=== PATIENT | male | born 1970 | race Caucasian/White ===

== ENCOUNTER 2016-07-29 16:28 | Inpatient (IN) | payer MEDICARE ==
[2016-07-29] MEDS ORDERED: XANAX0.5 M1 PO (16:37)
[2016-07-29] MEDS ORDERED: PROTONIX40 M2 PO (16:37)
[2016-07-29 17:20] LABS: HCT-HEMATOCRIT 31.1 % (36.0-53.5); MCH (MEAN CORPUSCULAR HGB) 32.1 pg (28.0-32.0); MCHC MEAN CORPUSCULAR HGB CONC 32.2 % (32.0-36.0); MCV (MEAN CELL VOLUME) 99.7 fl (82.0-96.0); MEAN PLATELET VOLUME 7.9 cmc (9.4-12.4); PLATELET COUNT 119 tho/cmm (150-450); RED BLOOD COUNT 3.12 mil/cmm (4.40-5.70); RED CELL DISTRIBUTION WIDTH 17.4 % (12.4-16.4)
[2016-07-29 17:22] LABS: WHITE BLOOD COUNT 204.7 tho/cmm (4.0-10.0)
[2016-07-29 17:34] LABS: ALB/GLOB RATIO 1.1 (0.8-2.0); ALBUMIN 3.9 g/dl (3.5-5.0); ALKALINE PHOSPHATASE 67 U/L (33-138); ALT/SGPT 32 U/L (12-78); ANION GAP 12 mmol/L (0-20); AST/SGOT 30 U/L (10-40); BILIRUBIN,TOTAL 0.4 mg/dl (0.0-1.5); BLOOD UREA NITROGEN 29 mg/dl (6-24); CARBON DIOXIDE-VENOUS 28 mmol/L (22-32); CHLORIDE 103 mmol/l (96-110); CREATININE 0.91 mg/dl (0.60-1.30); GLUCOSE 94 mg/dL (70-110); POTASSIUM 4.3 mmol/L (3.7-5.1); SODIUM 139 mmol/L (135-145); eGFR VALUE FOR BLACK >90 mL/Min
[2016-07-29 18:09] LABS: BAND % 32 % (0-20); BAND ABSOLUTE COUNT 65.5 tho/cmm (0-2.0); EOSINOPHIL % 1 % (0-7)
[2016-07-29 18:21] LABS: PROCALCITONIN 0.07 ng/ml (0.05-0.09)
[2016-07-29 18:41] LABS: URINE BILIRUBIN NEGATIVE (NEG); URINE BLOOD NEGATIVE (NEG); URINE GLUCOSE (UA) NEGATIVE (NEG); URINE KETONE NEGATIVE (NEG); URINE LEUKOCYTE ESTERASE NEGATIVE (NEG); URINE NITRITE NEGATIVE (NEG); URINE PROTEIN NEGATIVE (NEG)
[2016-07-29 18:43] LABS: URINE APPEARANCE CLEAR; URINE COLOR YELLOW
[2016-07-29 21:43] LABS: PROTHROMBIN TIME 11.3 SECONDS (9.0-13.6)
[2016-07-29 21:57] LABS: AMYLASE 60 U/L (20-90); C-REACTIVE PROTEIN 0.3 mg/dl (0-0.9); LIPASE 112 U/L (73-393); MAGNESIUM 2.1 mg/dl (1.8-2.6); PHOSPHOROUS 5.3 mg/dl (2.5-4.9)
[2016-07-29 22:01] LABS: TSH-THYROID STIMULATING HORM. 3.96 uIU/ml (0.40-3.80)
[2016-07-30 03:38] LABS: HCT-HEMATOCRIT 30.7 % (36.0-53.5); HGB-HEMOGLOBIN 9.9 gm/dl (13.5-17.0); MCHC MEAN CORPUSCULAR HGB CONC 32.2 % (32.0-36.0); MCV (MEAN CELL VOLUME) 99.4 fl (82.0-96.0); PLATELET COUNT 107 tho/cmm (150-450); RED BLOOD COUNT 3.09 mil/cmm (4.40-5.70); RED CELL DISTRIBUTION WIDTH 17.4 % (12.4-16.4)
[2016-07-30 03:48] LABS: ANION GAP 13 mmol/L (0-20); BLOOD UREA NITROGEN 27 mg/dl (6-24); CALCIUM 8.6 mg/dl (8.5-10.5); CARBON DIOXIDE-VENOUS 27 mmol/L (22-32); CHLORIDE 104 mmol/l (96-110); CREATININE 0.94 mg/dl (0.60-1.30); GLUCOSE 95 mg/dL (70-110); POTASSIUM 3.8 mmol/L (3.7-5.1); SODIUM 140 mmol/L (135-145); eGFR VALUE FOR BLACK >90 mL/Min
[2016-07-30 03:51] LABS: WHITE BLOOD COUNT 189.9 tho/cmm (4.0-10.0)
[2016-07-30 07:56] LABS: BAND % 13 % (0-20); BAND ABSOLUTE COUNT 24.7 tho/cmm (0-2.0); BASOPHIL % 3 % (0-2); BASOPHIL ABSOLUTE COUNT 5.7 tho/cmm (0.0-0.2); EOSINOPHIL % 2 % (0-7)
[2016-07-30 07:59] LABS: WBC MORPHOLOGY DOHLE BODIES
[2016-07-30 11:41] LABS: BLAST % 3 % (0); BLAST ABSOLUTE COUNT 5.7 tho/cmm (0)
[2016-07-30 11:41] LABS: BLAST % 3 % (0); BLAST ABSOLUTE COUNT 6.1 tho/cmm (0)
[2016-07-31 13:31] LABS: ALB/GLOB RATIO 1.2 (0.8-2.0); ALBUMIN 4.1 g/dl (3.5-5.0); ALKALINE PHOSPHATASE 74 U/L (33-138); ALT/SGPT 33 U/L (12-78); ANION GAP 12 mmol/L (0-20); AST/SGOT 26 U/L (10-40); BILIRUBIN,TOTAL 0.3 mg/dl (0.0-1.5); BLOOD UREA NITROGEN 26 mg/dl (6-24); CALCIUM 8.9 mg/dl (8.5-10.5); CARBON DIOXIDE-VENOUS 29 mmol/L (22-32); CHLORIDE 104 mmol/l (96-110); CREATININE 1.03 mg/dl (0.60-1.30); GLUCOSE 106 mg/dL (70-110); SODIUM 141 mmol/L (135-145); eGFR VALUE FOR BLACK >90 mL/Min
[2016-07-31 14:16] LABS: HCT-HEMATOCRIT 32.2 % (36.0-53.5); HGB-HEMOGLOBIN 10.3 gm/dl (13.5-17.0); MCH (MEAN CORPUSCULAR HGB) 31.9 pg (28.0-32.0); MCV (MEAN CELL VOLUME) 99.7 fl (82.0-96.0); MEAN PLATELET VOLUME 8.3 cmc (9.4-12.4); PLATELET COUNT 129 tho/cmm (150-450); RED BLOOD COUNT 3.23 mil/cmm (4.40-5.70); RED CELL DISTRIBUTION WIDTH 17.3 % (12.4-16.4)
[2016-07-31 14:28] LABS: WHITE BLOOD COUNT 185.6 tho/cmm (4.0-10.0)
[2016-07-31 15:10] LABS: BAND % 13 % (0-20); BAND ABSOLUTE COUNT 24.1 tho/cmm (0-2.0); BASOPHIL % 1 % (0-2); BASOPHIL ABSOLUTE COUNT 1.9 tho/cmm (0.0-0.2); EOSINOPHIL % 1 % (0-7)
[2016-07-31 15:14] LABS: BLAST % 12 % (0); BLAST ABSOLUTE COUNT 22.3 tho/cmm (0)
[2016-08-01 05:49] LABS: MCH (MEAN CORPUSCULAR HGB) 32.1 pg (28.0-32.0); MCHC MEAN CORPUSCULAR HGB CONC 32.3 % (32.0-36.0); MCV (MEAN CELL VOLUME) 99.4 fl (82.0-96.0); MEAN PLATELET VOLUME 8.4 cmc (9.4-12.4); RED BLOOD COUNT 3.12 mil/cmm (4.40-5.70); RED CELL DISTRIBUTION WIDTH 17.5 % (12.4-16.4)
[2016-08-01 06:02] LABS: WHITE BLOOD COUNT 155.3 tho/cmm (4.0-10.0)
[2016-08-01 06:26] LABS: PLATELET COUNT 124 tho/cmm (150-450)
[2016-08-01 06:28] LABS: BAND % 24 % (0-20); BAND ABSOLUTE COUNT 37.3 tho/cmm (0-2.0); BASOPHIL % 1 % (0-2); BASOPHIL ABSOLUTE COUNT 1.6 tho/cmm (0.0-0.2); BLAST ABSOLUTE COUNT 6.2 tho/cmm (0); EOSINOPHIL % 4 % (0-7)
[2016-08-01 06:29] LABS: BLAST % 4 % (0)
[2016-08-02] MEDS ORDERED: HYDREA500 M1 PO (16:46)
[2016-08-02] MEDS ORDERED: ZYLOPRIM100 M1 PO (16:47)
[2016-08-02] MEDS ORDERED: PERCOCET 5-3251 EACH PO (17:07)
== END 2016-08-02 17:45 | DRG 842 ==
LOC: EDMED 16:28 → EMR2 20:13 → 5WF 23:15
PROVIDERS: Emergency Medicine; Internal Medicine; Internal Medicine Hematology & Oncology; Registered Nurse; ADMIT Family Medicine
PROC: 07DR3ZX Extraction of Iliac Bone Marrow, Percutaneous Approach, Diagnostic (ICD-10-PCS; principal; 2016-07-30)
DX: C92.10 Chronic myeloid leukemia, BCR/ABL-positive, not having achieved remission (principal); R16.2 Hepatomegaly with splenomegaly, not elsewhere classified; K21.9 Gastro-esophageal reflux disease without esophagitis; F41.9 Anxiety disorder, unspecified; Z90.49 Acquired absence of other specified parts of digestive tract
CPT/HCPCS: C1830; G0364; J1650; J2060; J2250; J2270; J2405; J3010; J7030; Q9967